=== PATIENT | male | born 1995 | race Caucasian/White ===

== ENCOUNTER 2020-02-04 05:46 | Emergency (ER) | payer MEDICAID ==
[~2020-02-04] VITALS: Ht 172.7 cm; Wt 152.3 kg
--- NOTE | 2020-02-04 06:23 | NUR ---
DISCUSSED PT'S CURRENT ANXIETY MEDICATION REGIMEN W/ EDMD HERNÁNDEZ. NEW ORDER FOR CLONIDINE RECEIVED.
[2020-02-04] MEDS ORDERED: cloNIDine 0.1 mg tablet PO ONE (06:25)
[2020-02-04 06:41] VITALS: BP 145/90
== END 2020-02-04 06:45 | disposition home or self-care (01) ==
LOC: ER 05:47
DX: F41.9 Anxiety disorder, unspecified (principal); F41.0 Panic disorder [episodic paroxysmal anxiety]; G47.30 Sleep apnea, unspecified
CPT/HCPCS: 93005; 99283

== ENCOUNTER 2023-09-03 20:41 | Emergency (ER) | payer MEDICAID ==
[~2023-09-03] VITALS: Ht 175.3 cm; Wt 136.3 kg
[2023-09-03 21:08] VITALS: BP 155/90; PULSE 77; RESP 16; TEMP 98.2; O2SAT 97
[2023-09-03] MEDS ORDERED: bacitracin 15gm ointment TP ONE (23:00)
[2023-09-03] MEDS ORDERED: LIDOcaine 1% 30ml preserv. free vial IJ ONE (23:00)
[2023-09-03] MEDS ORDERED: TETanus/Pertussis (Acell)/Diphther VAC/PF (Tdap-Adult) 0.5ml syringe IMVAC ONE (23:00)
[2023-09-03] MEDS ORDERED: amox tr/potassium clavulanate 875/125mg TAB PO ONE (23:10)
[2023-09-04] MEDS ORDERED: AMOX-117 PO (00:20)
== END 2023-09-04 00:29 | disposition home or self-care (01) ==
LOC: ER 20:41
DX: S01.511A Laceration without foreign body of lip, initial encounter (principal); F41.9 Anxiety disorder, unspecified; W54.0XXA Bitten by dog, initial encounter; Y93.89 Activity, other specified; Y92.89 Other specified places as the place of occurrence of the external cause; Y99.8 Other external cause status
CPT/HCPCS: 40650; 90471; 90715; 99284; J7030; A6449